=== PATIENT | female | born 1970 | race Caucasian/White ===

== ENCOUNTER 2018-05-01 13:35 | Emergency (ER) | payer OTHER ==
[2018-05-01 14:09] VITALS: RESP 18
[2018-05-01] MEDS ORDERED: PANTOPRAZOLE 40 MG/10 ML VIAL IVP STA (14:58)
[2018-05-01] MEDS ORDERED: SODIUM CHLORIDE 0.9% 1,000 ML IV ONE (14:58)
[2018-05-01] MEDS ORDERED: SODIUM CHLORIDE 0.9% 1,000 ML IV SCH (15:00)
[2018-05-01] MEDS ORDERED: MECLIZINE 12.5 MG TAB PO STA (15:19)
--- NOTE | 2018-05-01 15:20 | ED ---
Abdominal Pain HPI - General Chief Complaint: Abdominal Pain Stated Complaint: Stomach pain Time Seen by Provider: 05/01/18 14:47 Source: patient, RN notes reviewed, old records reviewed Mode of arrival: ambulatory Limitations: no limitations - History of Present Illness Initial Comments: 47-year-old female presents emergency department today with chief complaint of nausea, cramping abdominal pain and dizziness. She reports she's had history of upper GI bleed last June and reports he had have blood transfusions. Patient poor she feels likes having similar complaints of pain she did at that time. She is antacid medication. Patient states that she's been having some sharp crampy abdominal pain complaints of dizziness. At this time Patient states that she has had no fevers or chills. She denies any chest pain shortness of breath or back pain. - Related Data Home Medications Medication Instructions Recorded Confirmed Aspirin/Acetaminophen/Caffeine 1 tab PO DAILY PRN 05/01/18 05/01/18 [Excedrin Migraine Caplet] Calcium Carbonate [Calcium] 600 mg PO DAILY 05/01/18 05/01/18 Ferrous Sulfate [Iron] 325 mg PO DAILY 05/01/18 05/01/18 Ibuprofen [Motrin Ib] 600 mg PO Q6H PRN 05/01/18 05/01/18 Lutein 10 mg PO DAILY 05/01/18 05/01/18 Multivitamin,Therapeutic [Thera] 1 tab PO DAILY 05/01/18 05/01/18 Vitamin B Complex 1 cap PO DAILY 05/01/18 05/01/18 Previous Rx's Medication Instructions Recorded Meclizine [Antivert] 25 mg PO TID #20 tab 05/01/18 Omeprazole [PriLOSEC] 40 mg PO DAILY #20 rama. 05/01/18 Ondansetron Odt [Zofran Odt] 4 mg PO Q8HR PRN #20 tab 05/01/18 Allergies Allergy/AdvReac Type Severity Reaction Status Date / Time nitrofurantoin Allergy Rash/Hives Verified 05/01/18 15:11 [From Macrobid] Review of Systems ROS Statement: Those systems with pertinent positive or pertinent negative responses have been documented in the HPI. ROS Other: All systems not noted in ROS Statement are negative. Past Medical History Past Medical History: GI Bleed History of Any Multi-Drug Resistant Organisms: None Reported Past Surgical History: No Surgical Hx Reported Past Psychological History: Depression Smoking Status: Former smoker Past Alcohol Use History: Occasional General Exam - General Exam Comments Initial Comments: 47-year-old female. Alert and oriented. No significant distress. Limitations: no limitations General appearance: alert, in no apparent distress Head exam: Present: atraumatic, normocephalic, normal inspection Eye exam: Present: normal appearance, PERRL, EOMI. Absent: scleral icterus, conjunctival injection, periorbital swelling ENT exam: Present: normal exam, mucous membranes moist Neck exam: Present: normal inspection. Absent: tenderness, meningismus, lymphadenopathy Respiratory exam: Present: normal lung sounds bilaterally. Absent: respiratory distress, wheezes, rales, rhonchi, stridor Cardiovascular Exam: Present: regular rate, normal rhythm, normal heart sounds. Absent: systolic murmur, diastolic murmur, rubs, gallop, clicks GI/Abdominal exam: Present: soft, normal bowel sounds. Absent: distended, tenderness, guarding, rebound, rigid Back exam: Present: normal inspection Neurological exam: Present: alert, oriented X3, CN II-XII intact Psychiatric exam: Present: normal affect, normal mood Skin exam: Present: warm, dry, intact, normal color. Absent: rash Course Vital Signs 05/01/18 14:07 Temperature 98.4 F Pulse Rate 74 Respiratory 18 Rate Blood Pressure 143/94 O2 Sat by Pulse 98 Oximetry Medical Decision Making - Medical Decision Making 47-year-old female presents emergency department today with chief complaints of nausea, abdominal cramping. She also complains of dizziness. At this time Patient was given an Pepcid, IV fluids. EKG is normal. Troponins negative. Chest x-ray shows no acute process. Due to question the Patient has some vertigo on exam with some his nystagmus noted on horizontal gaze. Patient at this time has no signs of anemia, concern for GI bleed. She states she's had normal stools. She is not want me to do a fecal occult test at this time. Urinalysis was negative. Discussed that this time that would like to start the Patient back on Pepcid antacid medication and nausea medicine and Antivert for dizziness. I discussed he needs to remain hydrated. Discussed that she should follow-up with Dr. Bhandari for reevaluation and return parameters were discussed. - Lab Data Result diagrams: 05/01/18 13:06 05/01/18 13:06 Lab Results 05/01/18 05/01/18 05/01/18 Range/Units 13:06 13:06 13:06 WBC 7.1 (3.8-10.6) k/uL RBC 4.81 (3.80-5.40) m/uL Hgb 15.1 (11.4-16.0) gm/dL Hct 46.1 H (34.0-46.0) % MCV 95.9 (80.0-100.0) fL MCH 31.4 (25.0-35.0) pg MCHC 32.8 (31.0-37.0) g/dL RDW 12.0 (11.5-15.5) % Plt Count 268 (150-450) k/uL Neutrophils % 67 % Lymphocytes % 25 % Monocytes % 5 % Eosinophils % 2 % Basophils % 1 % Neutrophils # 4.8 (1.3-7.7) k/uL Lymphocytes # 1.8 (1.0-4.8) k/uL Monocytes # 0.3 (0-1.0) k/uL Eosinophils # 0.1 (0-0.7) k/uL Basophils # 0.0 (0-0.2) k/uL Sodium 141 (137-145) mmol/L Potassium 5.1 (3.5-5.1) mmol/L Chloride 106 (98-107) mmol/L Carbon Dioxide 26 (22-30) mmol/L Anion Gap 9 mmol/L BUN 16 (7-17) mg/dL Creatinine 0.59 (0.52-1.04) mg/dL Est GFR (CKD-EPI)AfAm >90 (>60 ml/min/1.73 sqM) Est GFR (CKD-EPI)NonAf >90 (>60 ml/min/1.73 sqM) Glucose 89 (74-99) mg/dL Calcium 9.8 (8.4-10.2) mg/dL Total Bilirubin 1.1 (0.2-1.3) mg/dL AST 25 (14-36) U/L ALT 30 (9-52) U/L Alkaline Phosphatase 47 (38-126) U/L Troponin I <0.012 (0.000-0.034) ng/mL Total Protein 7.5 (6.3-8.2) g/dL Albumin 4.5 (3.5-5.0) g/dL Amylase 65 (30-110) U/L Lipase 75 (23-300) U/L Urine Color Urine Appearance (Clear) Urine pH (5.0-8.0) Ur Specific [place] (1.001-1.035) Urine Protein (Negative) Urine Glucose (UA) (Negative) Urine Ketones (Negative) Urine Blood (Negative) Urine Nitrite (Negative) Urine Bilirubin (Negative) Urine Urobilinogen (<2.0) mg/dL Ur Leukocyte Esterase (Negative) Urine RBC (0-5) /hpf Urine WBC (0-5) /hpf Ur Squamous Epith Cells (0-4) /hpf Urine Bacteria (None) /hpf 05/01/18 Range/Units 16:10 WBC (3.8-10.6) k/uL RBC (3.80-5.40) m/uL Hgb (11.4-16.0) gm/dL Hct (34.0-46.0) % MCV (80.0-100.0) fL MCH (25.0-35.0) pg MCHC (31.0-37.0) g/dL RDW (11.5-15.5) % Plt Count (150-450) k/uL Neutrophils % % Lymphocytes % % Monocytes % % Eosinophils % % Basophils % % Neutrophils # (1.3-7.7) k/uL Lymphocytes # (1.0-4.8) k/uL Monocytes # (0-1.0) k/uL Eosinophils # (0-0.7) k/uL Basophils # (0-0.2) k/uL Sodium (137-145) mmol/L Potassium (3.5-5.1) mmol/L Chloride (98-107) mmol/L Carbon Dioxide (22-30) mmol/L Anion Gap mmol/L BUN (7-17) mg/dL Creatinine (0.52-1.04) mg/dL Est GFR (CKD-EPI)AfAm (>60 ml/min/1.73 sqM) Est GFR (CKD-EPI)NonAf (>60 ml/min/1.73 sqM) Glucose (74-99) mg/dL Calcium (8.4-10.2) mg/dL Total Bilirubin (0.2-1.3) mg/dL AST (14-36) U/L ALT (9-52) U/L Alkaline Phosphatase (38-126) U/L Troponin I (0.000-0.034) ng/mL Total Protein (6.3-8.2) g/dL Albumin (3.5-5.0) g/dL Amylase (30-110) U/L Lipase (23-300) U/L Urine Color Light Yellow Urine Appearance Clear (Clear) Urine pH 6.0 (5.0-8.0) Ur Specific [place] 1.008 (1.001-1.035) Urine Protein Negative (Negative) Urine Glucose (UA) Negative (Negative) Urine Ketones Negative (Negative) Urine Blood Trace H (Negative) Urine Nitrite Negative (Negative) Urine Bilirubin Negative (Negative) Urine Urobilinogen <2.0 (<2.0) mg/dL Ur Leukocyte Esterase Small H (Negative) Urine RBC 1 (0-5) /hpf Urine WBC 1 (0-5) /hpf Ur Squamous Epith Cells 2 (0-4) /hpf Urine Bacteria Rare H (None) /hpf - Radiology Data Radiology results: report reviewed EKG shows was markedly EKG noted. Ventricular rate of 62. Tachycardia. Intervals 1:30 for most seconds. She anabaptist 106 most seconds. QT QTc is 420/434 ms. Disposition Clinical Impression: Dizziness, Abdominal cramping Disposition: HOME SELF-CARE Condition: Good Instructions: Vertigo (ED), Lightheadedness (ED) Additional Instructions: Patient has a follow-up with primary care provider and GI specialist. Start taking the medication as prescribed. Return to emergency department if any alarming signs or symptoms occur. Prescriptions: Meclizine [Antivert] 25 mg PO TID #20 tab Omeprazole [PriLOSEC] 40 mg PO DAILY #20 capsule. Ondansetron Odt [Zofran Odt] 4 mg PO Q8HR PRN #20 tab PRN Reason: Pain Is patient prescribed a controlled substance at d/c from ED?: No Referrals: Allison Gill MD [Primary Care Provider] - 1-2 days Anastacia Frankel MD [STAFF PHYSICIAN] - 1-2 days Time of Disposition: 16:33
[2018-05-01 15:28] LABS: Basophils % (A) 1 %; Eosinophils # (A) 0.1 k/uL (0-0.7); Eosinophils % (A) 2 %; HCT 46.1 % (34.0-46.0); HGB 15.1 gm/dL (11.4-16.0); Lymphocytes # (A) 1.8 k/uL (1.0-4.8); Lymphocytes % (A) 25 %; MCH 31.4 pg (25.0-35.0); MCHC 32.8 g/dL (31.0-37.0); MCV 95.9 fL (80.0-100.0); Mean Platelet Volume 6.7; Monocytes # (A) 0.3 k/uL (0-1.0); Monocytes % (A) 5 %; Neutrophils # (A) 4.8 k/uL (1.3-7.7); Neutrophils % (A) 67 %; Platelet Count 268 k/uL (150-450); RBC 4.81 m/uL (3.80-5.40); WBC 7.1 k/uL (3.8-10.6)
[2018-05-01 15:34] LABS: ALT 30 U/L (9-52); AST 25 U/L (14-36); Albumin 4.5 g/dL (3.5-5.0); Alkaline Phosphatase 47 U/L (38-126); Amylase 65 U/L (30-110); Anion Gap 9 mmol/L; Blood Urea Nitrogen 16 mg/dL (7-17); Calcium 9.8 mg/dL (8.4-10.2); Carbon Dioxide 26 mmol/L (22-30); Chloride 106 mmol/L (98-107); Glucose 89 mg/dL (74-99); Lipase 75 U/L (23-300); Potassium 5.1 mmol/L (3.5-5.1); Sodium 141 mmol/L (137-145); Total Bilirubin 1.1 mg/dL (0.2-1.3); Total Protein 7.5 g/dL (6.3-8.2)
--- NOTE | 2018-05-01 15:55 | XR ---
EXAMINATION TYPE: XR chest 2V DATE OF EXAM: 05/01/2018 COMPARISON: NONE HISTORY: Chest pain per order. TECHNIQUE: Frontal and lateral views of the chest are obtained. FINDINGS: There is no focal air space opacity, pleural effusion, or pneumothorax seen. The cardiac silhouette size is within normal limits. The osseous structures are intact. IMPRESSION: No acute cardiopulmonary process.
[2018-05-01 16:23] LABS: Appearance,Urine Clear (Clear); Bacteria,Urine Rare /hpf; Bilirubin,Urine Negative (Negative); Blood,Urine Trace (Negative); Color,Urine Light Yellow; Glucose,Urine (UA) Negative (Negative); Ketones,Urine Negative (Negative); Leukocyte Esterase,Urine Small (Negative); Nitrite,Urine Negative (Negative); Protein,Urine Negative (Negative); RBC,Urine 1 /hpf (0-5); Specific Gravity,Urine 1.008 (1.001-1.035); Squamous Epithelial Cell,Urine 2 /hpf (0-4); Urobilinogen,Urine <2.0 mg/dL (<2.0); WBC,Urine 1 /hpf (0-5)
--- NOTE | 2018-05-01 16:49 | ED ---
Medical Decision Making - Lab Data Result diagrams: 05/01/18 13:06 05/01/18 13:06 Lab Results 05/01/18 05/01/18 05/01/18 Range/Units 13:06 13:06 13:06 WBC 7.1 (3.8-10.6) k/uL RBC 4.81 (3.80-5.40) m/uL Hgb 15.1 (11.4-16.0) gm/dL Hct 46.1 H (34.0-46.0) % MCV 95.9 (80.0-100.0) fL MCH 31.4 (25.0-35.0) pg MCHC 32.8 (31.0-37.0) g/dL RDW 12.0 (11.5-15.5) % Plt Count 268 (150-450) k/uL Neutrophils % 67 % Lymphocytes % 25 % Monocytes % 5 % Eosinophils % 2 % Basophils % 1 % Neutrophils # 4.8 (1.3-7.7) k/uL Lymphocytes # 1.8 (1.0-4.8) k/uL Monocytes # 0.3 (0-1.0) k/uL Eosinophils # 0.1 (0-0.7) k/uL Basophils # 0.0 (0-0.2) k/uL Sodium 141 (137-145) mmol/L Potassium 5.1 (3.5-5.1) mmol/L Chloride 106 (98-107) mmol/L Carbon Dioxide 26 (22-30) mmol/L Anion Gap 9 mmol/L BUN 16 (7-17) mg/dL Creatinine 0.59 (0.52-1.04) mg/dL Est GFR (CKD-EPI)AfAm >90 (>60 ml/min/1.73 sqM) Est GFR (CKD-EPI)NonAf >90 (>60 ml/min/1.73 sqM) Glucose 89 (74-99) mg/dL Calcium 9.8 (8.4-10.2) mg/dL Total Bilirubin 1.1 (0.2-1.3) mg/dL AST 25 (14-36) U/L ALT 30 (9-52) U/L Alkaline Phosphatase 47 (38-126) U/L Troponin I <0.012 (0.000-0.034) ng/mL Total Protein 7.5 (6.3-8.2) g/dL Albumin 4.5 (3.5-5.0) g/dL Amylase 65 (30-110) U/L Lipase 75 (23-300) U/L Urine Color Urine Appearance (Clear) Urine pH (5.0-8.0) Ur Specific [place] (1.001-1.035) Urine Protein (Negative) Urine Glucose (UA) (Negative) Urine Ketones (Negative) Urine Blood (Negative) Urine Nitrite (Negative) Urine Bilirubin (Negative) Urine Urobilinogen (<2.0) mg/dL Ur Leukocyte Esterase (Negative) Urine RBC (0-5) /hpf Urine WBC (0-5) /hpf Ur Squamous Epith Cells (0-4) /hpf Urine Bacteria (None) /hpf 05/01/18 Range/Units 16:10 WBC (3.8-10.6) k/uL RBC (3.80-5.40) m/uL Hgb (11.4-16.0) gm/dL Hct (34.0-46.0) % MCV (80.0-100.0) fL MCH (25.0-35.0) pg MCHC (31.0-37.0) g/dL RDW (11.5-15.5) % Plt Count (150-450) k/uL Neutrophils % % Lymphocytes % % Monocytes % % Eosinophils % % Basophils % % Neutrophils # (1.3-7.7) k/uL Lymphocytes # (1.0-4.8) k/uL Monocytes # (0-1.0) k/uL Eosinophils # (0-0.7) k/uL Basophils # (0-0.2) k/uL Sodium (137-145) mmol/L Potassium (3.5-5.1) mmol/L Chloride (98-107) mmol/L Carbon Dioxide (22-30) mmol/L Anion Gap mmol/L BUN (7-17) mg/dL Creatinine (0.52-1.04) mg/dL Est GFR (CKD-EPI)AfAm (>60 ml/min/1.73 sqM) Est GFR (CKD-EPI)NonAf (>60 ml/min/1.73 sqM) Glucose (74-99) mg/dL Calcium (8.4-10.2) mg/dL Total Bilirubin (0.2-1.3) mg/dL AST (14-36) U/L ALT (9-52) U/L Alkaline Phosphatase (38-126) U/L Troponin I (0.000-0.034) ng/mL Total Protein (6.3-8.2) g/dL Albumin (3.5-5.0) g/dL Amylase (30-110) U/L Lipase (23-300) U/L Urine Color Light Yellow Urine Appearance Clear (Clear) Urine pH 6.0 (5.0-8.0) Ur Specific [place] 1.008 (1.001-1.035) Urine Protein Negative (Negative) Urine Glucose (UA) Negative (Negative) Urine Ketones Negative (Negative) Urine Blood Trace H (Negative) Urine Nitrite Negative (Negative) Urine Bilirubin Negative (Negative) Urine Urobilinogen <2.0 (<2.0) mg/dL Ur Leukocyte Esterase Small H (Negative) Urine RBC 1 (0-5) /hpf Urine WBC 1 (0-5) /hpf Ur Squamous Epith Cells 2 (0-4) /hpf Urine Bacteria Rare H (None) /hpf Disposition Clinical Impression: Dizziness, Abdominal cramping Disposition: HOME SELF-CARE Condition: Good Instructions: Vertigo (ED), Lightheadedness (ED), Diet for Stomach Ulcers and Gastritis (ED) Additional Instructions: Patient has a follow-up with primary care provider and GI specialist. Start taking the medication as prescribed. Return to emergency department if any alarming signs or symptoms occur. Prescriptions: Meclizine [Antivert] 25 mg PO TID #20 tab Omeprazole [PriLOSEC] 40 mg PO DAILY #20 capsule. Ondansetron Odt [Zofran Odt] 4 mg PO Q8HR PRN #20 tab PRN Reason: Pain Sucralfate [Carafate] 1 gm PO ACHS #20 tablet Is patient prescribed a controlled substance at d/c from ED?: No Referrals: Allison Gill MD [Primary Care Provider] - 1-2 days Anastacia Frankel MD [STAFF PHYSICIAN] - 1-2 days
[2018-05-01 16:58] VITALS: BP 138/64; PULSE 87; TEMP 98
== END 2018-05-01 16:58 | disposition home or self-care (01) ==
LOC: EC 13:35
DX: R10.9 Unspecified abdominal pain (principal); R42 Dizziness and giddiness; R11.0 Nausea; Z87.891 Personal history of nicotine dependence; Z79.899 Other long term (current) drug therapy; Z88.1 Allergy status to other antibiotic agents; Z53.29 Procedure and treatment not carried out because of patient's decision for other reasons
CPT/HCPCS: 36415; 71046; 80053; 81001; 82150; 83690; 84484; 85025; 93005; 96374; 99284

== ENCOUNTER 2018-07-02 10:10 | Inpatient (IN) | payer OTHER ==
[2018-07-02] MEDS ORDERED: SODIUM CHLORIDE 0.9% 1,000 ML IV STA (10:39)
[2018-07-02] MEDS ORDERED: PANTOPRAZOLE 40 MG/10 ML VIAL IVP STA (10:39)
[2018-07-02] MEDS ORDERED: ONDANSETRON 4 MG/2 ML VIAL IVP STA (10:39)
[2018-07-02] MEDS ORDERED: SODIUM CHLORIDE 0.9% 500 ML 500 ML IV STA (10:39)
--- NOTE | 2018-07-02 10:42 | ED ---
General Adult HPI - General Chief complaint: Abdominal Pain Stated complaint: VOMITING BLOOD Time Seen by Provider: 07/02/18 10:29 Source: patient, family, RN notes reviewed Mode of arrival: ambulatory Limitations: no limitations - History of Present Illness Initial comments: Patient is a pleasant 47-year-old female presenting to the emergency department with hematemesis. Patient woke up with an upset stomach. There is mild discomfort and nausea. Following this patient did have 4 episodes of bright red blood. Patient still feels nauseated. Abdominal discomfort is only mild. Patient did have an episode of black stool this morning. Patient did have similar symptoms last year March associated with ulcers. Patient did have scope and blood transfusion done at that time. Patient is not chronically on medication for stomach. Patient does frequently take Excedrin for headaches. - Related Data Home Medications Medication Instructions Recorded Confirmed Aspirin/Acetaminophen/Caffeine 1 tab PO DAILY PRN 05/01/18 07/02/18 [Excedrin Migraine Caplet] Calcium Carbonate [Calcium] 600 mg PO DAILY 05/01/18 07/02/18 Lutein 10 mg PO DAILY 05/01/18 07/02/18 Latanoprost [Xalatan 0.005%] 1 drop BOTH EYES HS 07/02/18 07/02/18 Allergies Allergy/AdvReac Type Severity Reaction Status Date / Time nitrofurantoin Allergy Rash/Hives Verified 07/02/18 11:33 [From Macrobid] Review of Systems ROS Statement: Those systems with pertinent positive or pertinent negative responses have been documented in the HPI. ROS Other: All systems not noted in ROS Statement are negative. Constitutional: Denies: fever Eyes: Denies: eye pain ENT: Denies: ear pain Respiratory: Denies: cough Cardiovascular: Denies: chest pain Endocrine: Reports: fatigue Gastrointestinal: Reports: abdominal pain, nausea, vomiting, hematemesis, melena Genitourinary: Denies: dysuria Musculoskeletal: Denies: back pain Skin: Denies: rash Neurological: Denies: headache Past Medical History Past Medical History: GI Bleed History of Any Multi-Drug Resistant Organisms: None Reported Past Surgical History: No Surgical Hx Reported Past Psychological History: Depression Smoking Status: Former smoker Past Alcohol Use History: Occasional, Rare Past Drug Use History: None Reported General Exam Limitations: no limitations General appearance: alert, in no apparent distress, other (Patient does have a container from home at bedside with bright red blood in it) Head exam: Present: atraumatic Eye exam: Present: normal appearance ENT exam: Present: normal oropharynx Neck exam: Present: normal inspection Respiratory exam: Present: normal lung sounds bilaterally Cardiovascular Exam: Present: regular rate, normal rhythm GI/Abdominal exam: Present: soft, tenderness (Mild epigastric tenderness). Absent: distended Extremities exam: Present: normal inspection Neurological exam: Present: alert Psychiatric exam: Present: normal affect, normal mood Skin exam: Present: normal color Course Vital Signs 07/02/18 07/02/18 10:13 12:51 Temperature 97.4 F L Pulse Rate 98 90 Respiratory 18 18 Rate Blood Pressure 128/78 120/77 O2 Sat by Pulse 100 97 Oximetry - Reevaluation(s) Reevaluation #1: 07/02/18 12:51 Patient reevaluated and resting comfortably in bed. Dr. Rodriguez has been paged for admission. Patient and family have been updated. 07/02/18 13:11 Case was discussed in detail with Dr. Rodriguez, covering for Dr. James gonsalves, who will admit. EKG Findings - EKG Comments: EKG Findings:: Normal sinus rhythm 86. NE 116. QRS 102. QT 390. QTC 466. Normal axis. Normal QRS. No acute ST change. Medical Decision Making - Lab Data Result diagrams: 07/02/18 11:28 07/02/18 11:28 Lab Results 07/02/18 07/02/18 07/02/18 Range/Units 11:28 11:28 11:28 WBC 9.5 (3.8-10.6) k/uL RBC 4.08 (3.80-5.40) m/uL Hgb 13.0 (11.4-16.0) gm/dL Hct 39.1 (34.0-46.0) % MCV 95.9 (80.0-100.0) fL MCH 31.9 (25.0-35.0) pg MCHC 33.2 (31.0-37.0) g/dL RDW 12.4 (11.5-15.5) % Plt Count 289 (150-450) k/uL Neutrophils % 81 % Lymphocytes % 15 % Monocytes % 3 % Eosinophils % 1 % Basophils % 0 % Neutrophils # 7.7 (1.3-7.7) k/uL Lymphocytes # 1.4 (1.0-4.8) k/uL Monocytes # 0.3 (0-1.0) k/uL Eosinophils # 0.1 (0-0.7) k/uL Basophils # 0.0 (0-0.2) k/uL PT (9.0-12.0) sec INR (<1.2) APTT (22.0-30.0) sec Sodium 140 (137-145) mmol/L Potassium 5.2 H (3.5-5.1) mmol/L Chloride 110 H (98-107) mmol/L Carbon Dioxide 18 L (22-30) mmol/L Anion Gap 12 mmol/L BUN 29 H (7-17) mg/dL Creatinine 0.50 L (0.52-1.04) mg/dL Est GFR (CKD-EPI)AfAm >90 (>60 ml/min/1.73 sqM) Est GFR (CKD-EPI)NonAf >90 (>60 ml/min/1.73 sqM) Glucose 97 (74-99) mg/dL Calcium 9.1 (8.4-10.2) mg/dL Total Bilirubin 1.2 (0.2-1.3) mg/dL AST 27 (14-36) U/L ALT 24 (9-52) U/L Alkaline Phosphatase 38 (38-126) U/L Total Protein 6.8 (6.3-8.2) g/dL Albumin 4.0 (3.5-5.0) g/dL Gastric Occult Blood Positive (Negative) Blood Type Blood Type Recheck Antibody Screen Spec Expiration Date 07/02/18 07/02/18 Range/Units 11:28 11:28 WBC (3.8-10.6) k/uL RBC (3.80-5.40) m/uL Hgb (11.4-16.0) gm/dL Hct (34.0-46.0) % MCV (80.0-100.0) fL MCH (25.0-35.0) pg MCHC (31.0-37.0) g/dL RDW (11.5-15.5) % Plt Count (150-450) k/uL Neutrophils % % Lymphocytes % % Monocytes % % Eosinophils % % Basophils % % Neutrophils # (1.3-7.7) k/uL Lymphocytes # (1.0-4.8) k/uL Monocytes # (0-1.0) k/uL Eosinophils # (0-0.7) k/uL Basophils # (0-0.2) k/uL PT 9.8 (9.0-12.0) sec INR 1.0 (<1.2) APTT 20.4 L (22.0-30.0) sec Sodium (137-145) mmol/L Potassium (3.5-5.1) mmol/L Chloride (98-107) mmol/L Carbon Dioxide (22-30) mmol/L Anion Gap mmol/L BUN (7-17) mg/dL Creatinine (0.52-1.04) mg/dL Est GFR (CKD-EPI)AfAm (>60 ml/min/1.73 sqM) Est GFR (CKD-EPI)NonAf (>60 ml/min/1.73 sqM) Glucose (74-99) mg/dL Calcium (8.4-10.2) mg/dL Total Bilirubin (0.2-1.3) mg/dL AST (14-36) U/L ALT (9-52) U/L Alkaline Phosphatase (38-126) U/L Total Protein (6.3-8.2) g/dL Albumin (3.5-5.0) g/dL Gastric Occult Blood (Negative) Blood Type O Positive Blood Type Recheck CABO Indicated Antibody Screen NEGATIVE Spec Expiration Date 07/05/2018 - 6751 - Radiology Data Radiology results: image reviewed (Abdominal x-ray reveals no acute process) Disposition Clinical Impression: Upper GI bleed Disposition: ADMITTED IP TO THIS [facility] Condition: Serious Is patient prescribed a controlled substance at d/c from ED?: No Decision Time: 12:44
[2018-07-02 11:57] LABS: Basophils % (A) 0 %; Eosinophils # (A) 0.1 k/uL (0-0.7); Eosinophils % (A) 1 %; HCT 39.1 % (34.0-46.0); Lymphocytes # (A) 1.4 k/uL (1.0-4.8); Lymphocytes % (A) 15 %; MCH 31.9 pg (25.0-35.0); MCHC 33.2 g/dL (31.0-37.0); MCV 95.9 fL (80.0-100.0); Monocytes # (A) 0.3 k/uL (0-1.0); Monocytes % (A) 3 %; Neutrophils # (A) 7.7 k/uL (1.3-7.7); Neutrophils % (A) 81 %; Platelet Count 289 k/uL (150-450); RBC 4.08 m/uL (3.80-5.40); RDW 12.4 % (11.5-15.5); WBC 9.5 k/uL (3.8-10.6)
[2018-07-02 12:08] LABS: ALT 24 U/L (9-52); AST 27 U/L (14-36); Alkaline Phosphatase 38 U/L (38-126); Anion Gap 12 mmol/L; Blood Urea Nitrogen 29 mg/dL (7-17); Calcium 9.1 mg/dL (8.4-10.2); Carbon Dioxide 18 mmol/L (22-30); Chloride 110 mmol/L (98-107); Glucose 97 mg/dL (74-99); Sodium 140 mmol/L (137-145); Total Bilirubin 1.2 mg/dL (0.2-1.3); Total Protein 6.8 g/dL (6.3-8.2)
[2018-07-02 12:12] LABS: Potassium 5.2 mmol/L (3.5-5.1)
--- NOTE | 2018-07-02 12:13 | XR ---
Abdomen HISTORY: Vomiting blood, history of ulcers Frontal view of the abdomen on 2 images Lung bases are clear. There is a mild spinal curvature. There are overlying cardiac leads. No evident pneumoperitoneum or bowel obstruction. No pathologic calcification. Bone mineralization is normal. IMPRESSION: Nonobstructive bowel gas pattern.
[2018-07-02 12:18] LABS: Prothrombin Time 9.8 sec (9.0-12.0)
[2018-07-02 12:32] LABS: Partial Thromboplastin Time 20.4 sec (22.0-30.0)
[2018-07-02] MEDS ORDERED: NALOXONE 0.4 MG/ML 1 ML VIAL IV PRN (12:44)
[2018-07-02] MEDS ORDERED: ONDANSETRON 4 MG/2 ML VIAL IVP PRN (12:44)
[2018-07-02] MEDS ORDERED: SUMAtriptan SUCCINATE 50 MG TAB PO PRN (15:18)
--- NOTE | 2018-07-02 15:18 | P.HPIM ---
History of Present Illness H&P Date: 07/02/18 Chief Complaint: Abdominal pain upper GI bleed This Is a pleasant 47-year-old lady patient of Dr. Gill, she has underlying history of upper GI bleed last June 2017, and has had blood transfusions the past coming in with similar complaints. She is on antacid medication, pain is epigastric, crampy abdominal pain, with no lightheadedness or dizziness, patient has one melanocytic stools, and bright red emesis.. No chest pain no fever no chills. She was on Motrin in April 2018, and is on Excedrin migraine which contains aspirin She is not chronically on any NSAIDs or PPIs. She is on Tums 600 mg daily Review of Systems Constitutional: Reports as per HPI, Denies anorexia, Denies chills, Denies chronic headaches, Denies chronic pain, Denies daytime sleepiness, Denies fatigue, Denies fever, Denies lethargy, Denies malaise, Denies night sweats, Denies poor appetite, Denies sweats, Denies weakness, Denies weight gain, Denies weight loss Ears, nose, mouth and throat: Reports as per HPI, Denies ant. neck pain, Denies bleeding gums, Denies dental pain, Denies dysphagia, Denies epistaxis, Denies headache, Denies hoarseness, Denies mouth pain, Denies nasal congestion, Denies nasal discharge, Denies neck fullness/pressure, Denies neck lump, Denies nose pain, Denies odynophagia, Denies post-nasal drip, Denies sinus pain, Denies sinus pressure, Denies swelling in mouth, Denies swelling in throat, Denies sore throat, Denies vertigo, Denies voice changes Cardiovascular: Reports as per HPI, Denies chest pain, Denies claudication, Denies decreased exercise tolerance, Denies dyspnea on exertion, Denies edema, Denies high blood pressure, Denies irregular heart beat, Denies leg edema, Denies lightheadedness, Denies orthopnea, Denies palpitations, Denies paroxysmal nocturnal dyspnea, Denies phlebitis, Denies rapid heart beat, Denies shortness of breath, Denies syncope Respiratory: Reports as per HPI Gastrointestinal: Reports as per HPI, Reports abdominal pain, Reports coffee ground emesis, Reports early satiety, Reports nausea Genitourinary: Reports as per HPI, Denies abnormal vaginal bleeding, Denies decreased libido, Denies difficulty conceiving, Denies difficulty voiding, Denies dysmenorrhea, Denies dyspareunia, Denies dysuria, Denies flank pain, Denies genital sores, Denies hematuria, Denies hot flashes, Denies incomplete emptying, Denies kidney stones, Denies menorrhagia, Denies mixed incontinence, Denies nocturia, Denies pelvic pain, Denies post void dribbling, Denies , Denies prolapse symptoms, Denies stress incontinence, Denies urge incontinence , Denies urgency, Denies urinary frequency, Denies vaginal discharge, Denies vaginal dryness, Denies vaginal itching, Denies vaginal odor Menstruation: Reports as per HPI Musculoskeletal: Reports as per HPI Integumentary: Reports as per HPI Neurological: Reports as per HPI, Reports headaches, Denies aphasia, Denies ataxia, Denies balance difficulties, Denies burning pain, Denies change in mentation, Denies change in smell/taste, Denies change in speech, Denies confusion, Denies convulsions, Denies double vision, Denies gait dysfunction, Denies head injury, Denies hearing difficulties, Denies lack of coordination, Denies loss of vision, Denies memory loss, Denies migraines, Denies motor disturbance, Denies numbness, Denies paralysis, Denies paresthesias, Denies seizures, Denies sensory deficit, Denies spasticity, Denies syncope, Denies tic , Denies tingling, Denies transient paralysis, Denies tremors, Denies vertigo, Denies weakness, Denies visual changes Psychiatric: Reports as per HPI, Denies anhedonia, Denies anxiety, Denies anxiety attacks, Denies change in appetite, Denies change in libido, Denies change in sleep habits, Denies confusion, Denies depression, Denies difficulty concentrating, Denies disorientation, Denies hallucinations, Denies hopelessness , Denies hypersomnia, Denies insomnia, Denies irritability, Denies memory loss, Denies mood swings, Denies paranoia, Denies sadness/tearfulness, Denies sleep disturbances, Denies suicidal ideation Endocrine: Reports as per HPI, Denies cold intolerance, Denies deepening of the voice, Denies excessive sweating, Denies excessive thirst, Denies fatigue, Denies flushing, Denies heat intolerance, Denies high blood sugars, Denies increase in ring/shoe/hat size, Denies low blood sugars, Denies nocturia, Denies palpitations, Denies polydipsia, Denies polyphagia, Denies polyuria, Denies proptosis, Denies recent glucocorticoid use, Denies thyroid mass, Denies weight change Hematologic/Lymphatic: Reports as per HPI, Denies easy bleeding, Denies easy bruising, Denies lymphadenopathy, Denies lymphedema, Denies thrombophilia Allergic/Immunologic: Reports as per HPI, Denies allergic rhinitis, Denies anaphylaxis, Denies angioedema, Denies gluten intolerance, Denies persistent infections, Denies seasonal allergies, Denies urticaria, Denies wheezing Past Medical History Past Medical History: Eye Disorder, GI Bleed, Hypertension, Syncope Additional Past Medical History / Comment(s): Pt states 03/2017 had bleeding gastric ulcer/vertigo and syncopal episode, migraines, pt states has had HTN in the past, glaucoma bilaterally. History of Any Multi-Drug Resistant Organisms: None Reported Past Surgical History: No Surgical Hx Reported Additional Past Surgical History / Comment(s): egd Past Anesthesia/Blood Transfusion Reactions: No Reported Reaction Additional Past Anesthesia/Blood Transfusion Reaction / Comment(s): Pt has received blood in past without reaction. Smoking Status: Former smoker - Past Family History Father Family Medical History: Cancer Additional Family Medical History / Comment(s): Father is living. He has leukemia. Mother Family Medical History: COPD, Dementia Additional Family Medical History / Comment(s): Mother is . Medications and Allergies Home Medications Medication Instructions Recorded Confirmed Type Aspirin/Acetaminophen/Caffeine 1 tab PO DAILY PRN 05/01/18 07/02/18 History [Excedrin Migraine Caplet] Calcium Carbonate [Calcium] 600 mg PO DAILY 05/01/18 07/02/18 History Lutein 10 mg PO DAILY 05/01/18 07/02/18 History Latanoprost [Xalatan 0.005%] 1 drop BOTH EYES HS 07/02/18 07/02/18 History Allergies Allergy/AdvReac Type Severity Reaction Status Date / Time nitrofurantoin Allergy Rash/Hives Verified 07/02/18 11:33 [From Macrobid] Physical Exam Vitals: Vital Signs Temp Pulse Pulse Resp BP BP Pulse Ox 07/02/18 14:55 97.7 F 88 16 144/80 99 07/02/18 13:30 97.8 F 84 18 129/81 99 07/02/18 12:51 90 18 120/77 97 07/02/18 10:13 97.4 F L 98 18 128/78 100 Intake and Output 07/02/18 07/02/18 07/02/18 06:59 14:59 22:59 Other: Weight 81.647 kg - Constitutional General appearance: average body habitus, cooperative, no acute distress - EENT Eyes: no abnormal pupil, anicteric sclerae, no disc margins sharp, no edentulous , EOMI, no PERRLA, no fundus normal, no photophobia, dentition normal, no poor dentition, no ptosis, no scleral icterus, normal appearance - Neck Neck: no lymphadenopathy, normal ROM, no other, no rigidity, no stridor, no thyromegaly - Respiratory Respiratory: bilateral: CTA, negative: diminished, dullness, rales, rhonchi, wheezing, prolonged expiration, prolonged inspiration - Cardiovascular Rhythm: regular Heart sounds: normal: S1, S2 Abnormal Heart Sounds: no systolic murmur, no diastolic murmur, no rub, no S3 Gallop, no S4 Gallop, no click, no other - Gastrointestinal General gastrointestinal: normal bowel sounds, soft, tenderness - Integumentary Integumentary: decreased turgor, normal - Neurologic Neurologic: CNII-XII intact - Musculoskeletal Musculoskeletal: gait normal, strength equal bilaterally - Psychiatric Psychiatric: A&O x's 3, appropriate affect, intact judgment & insight Results CBC & Chem 7: 07/02/18 11:28 07/02/18 11:28 Labs: Abnormal Lab Results - Last 24 Hours (Table) 07/02/18 07/02/18 Range/Units 11:28 11:28 APTT 20.4 L (22.0-30.0) sec Potassium 5.2 H (3.5-5.1) mmol/L Chloride 110 H (98-107) mmol/L Carbon Dioxide 18 L (22-30) mmol/L BUN 29 H (7-17) mg/dL Creatinine 0.50 L (0.52-1.04) mg/dL Thrombosis Risk Factor Assmnt - DVT/VTE Prophylaxis DVT/VTE Prophylaxis: Mechanical Prophylaxis ordered, Contraindicated - See note - Choose All That Apply Any of the Below Risk Factors Present?: Yes Each Factor Represents 1 point: Age 41-60 years Other Risk Factors: No Other congenital or acquired thrombophilia - If yes, enter type in comment: No Thrombosis Risk Factor Assessment Total Risk Factor Score: 1 Thrombosis Risk Factor Assessment Level: Low Risk Assessment and Plan Plan: 1. Recurrent upper GI bleeding, with prior history of blood transfusions, patient would be given IV PPI 40 mg twice a day, consult GI, he had a scope in March 2018, patient is on chronic exposure to aspirin in the form of a migraine medication, this will be discontinued, As it contains aspirin. Patient would be observed overnight for blood losses, H&H every 6 hours patient will be kept under telemetry unit, might need ICU she had multiple been dropped significantly or blood losses are significant 2. Migraines, chronic use of Dexedrine which contains aspirin, this does more harm than good for her treatment, migraine prophylaxis is warranted, we would discuss this with the patient for possible long-term use, Imitrex to be used for headache abortive treatments, 3. History of blood loss anemia with prior blood transfusions, hemoglobin currently is at 13, monitor frequently, INRs are normal at 1.0 For Hyperkalemia most likely secondary to falling contraction mild dehydration 4. Mild azotemia most likely secondary to dehydration, no evidence of acute renal sufficiency or injury at this time 5. Mild leukocyte esterase positivity without any evidence of significant pyuria, urine WBC of 1, we will not treat 6. Gastric occult blood positive secondary to upper GI bleed C treatment above
[2018-07-02] MEDS: SODIUM CHLORIDE 0.9% 1,000 ML IV SCH ×2 (16:00→22:36)
[2018-07-02] MEDS: PANTOPRAZOLE 40 MG/10 ML VIAL IV SCH ×2 (16:42→22:33)
[2018-07-02 18:43] LABS: Basophils % (A) 0 %; Eosinophils # (A) 0.1 k/uL (0-0.7); Eosinophils % (A) 1 %; HCT 34.8 % (34.0-46.0); HGB 11.5 gm/dL (11.4-16.0); Lymphocytes # (A) 1.7 k/uL (1.0-4.8); Lymphocytes % (A) 17 %; MCHC 33.1 g/dL (31.0-37.0); MCV 96.8 fL (80.0-100.0); Mean Platelet Volume 6.7; Monocytes # (A) 0.3 k/uL (0-1.0); Monocytes % (A) 3 %; Neutrophils # (A) 7.7 k/uL (1.3-7.7); Neutrophils % (A) 79 %; Platelet Count 266 k/uL (150-450); RBC 3.59 m/uL (3.80-5.40); RDW 12.7 % (11.5-15.5); WBC 9.7 k/uL (3.8-10.6)
[2018-07-02] MEDS: LACTATED RINGERS 1,000 ML IV SCH (18:43)
[2018-07-03 01:39] LABS: HCT 31.8 % (34.0-46.0); HGB 10.2 gm/dL (11.4-16.0); MCHC 31.9 g/dL (31.0-37.0); MCV 97.2 fL (80.0-100.0); Mean Platelet Volume 6.4; Platelet Count 256 k/uL (150-450); RBC 3.28 m/uL (3.80-5.40); RDW 12.8 % (11.5-15.5); WBC 9.3 k/uL (3.8-10.6)
[2018-07-03] MEDS: SODIUM CHLORIDE 0.9% 1,000 ML IV SCH ×3 (05:45→20:39)
[2018-07-03] MEDS: PANTOPRAZOLE 40 MG/10 ML VIAL IV SCH ×2 (07:48→20:39)
[2018-07-03] MEDS ORDERED: fentaNYL (PF) 50 MCG/ML 2 ML AMP ONE (08:58)
[2018-07-03] MEDS ORDERED: PROPOFOL 10 MG/ML 20 ML VIAL IV ONE (08:58)
[2018-07-03] MEDS ORDERED: IV FLUID CONTINUATION 1,000 ML IV ONE (08:58)
[2018-07-03] MEDS ORDERED: LIDOCAINE 1% INJ 10MG/ML (20 ML MDV) ONE (08:58)
[2018-07-03] MEDS ORDERED: PANTOPRAZOLE 40 MG/10 ML VIAL IV SCH (09:00)
--- NOTE | 2018-07-03 09:29 | P.PCN ---
Date of Procedure: 07/03/18 Procedure(s) Performed: Procedure: Esophagogastroduodenoscopy and biopsy. Preoperative diagnosis: Upper GI bleeding. Postoperative diagnosis: 1. Small sliding hiatal hernia with no obvious esophagitis or complicated reflux disease. 2. Antral gastritis with multiple erosions and small ulcerations but no active bleeding. 3. Mild duodenitis with no ulcers or bleeding. 4. Biopsies obtained from the antrum to rule out H. pylori infection. Preparation sedation: Was provided by anesthesia. Brief clinical history: The patient is a 47-year-old female who presented to the emergency department with hematemesis. Patient woke up with an upset stomach. [place] mild discomfort and nausea. Following this patient had a tarry bowel movement and 4 episodes of bright red blood including one on her way to the emergency room. In ER she still felt nauseated. Abdominal discomfort is only mild. Patient did have similar symptoms last year [place] associated with ulcers. Patient did have scope and blood transfusion done at that time. She apparently was treated for bacterial infection back then. Patient is not chronically on medication for stomach. Patient does frequently take Excedrin for headaches and Motrin once a month for abdominal cramps. The details are summarized in the history and physical and dictated consultation and progress notes. This evaluation is to assess for peptic ulcer disease or other etiology. Procedure: With the patient on her left lateral decubitus position and after informed consent and adequate sedation, I passed the Olympus-GIF 160 video upper endoscope through the cricopharyngeus down the esophagus. GE junction was around 40 cm from the incisors and there was a small sliding hiatal hernia but no obvious esophagitis or complicated reflux disease. No mucosal tears or bleeding. The endoscope was then passed into the stomach which was insufflated with air and inspected in detail including the retroflex view in the cardia. There was some mottling and erythema in the antrum as well as scattered erosions and small ulceration but no evidence of active bleeding. No large ulcer crater. Pyloric channel did not show any ulcers. Duodenal bulb showed minimal erythema and minimal friability but no ulcers or bleeding. Post bulbar area and descending duodenum within normal limits. All secretions encountered in the esophagus stomach and duodenum were clear in color with no evidence of active bleeding. I obtained biopsies from the antrum then the endoscope was withdrawn. The patient tolerated the procedure well. Plan: The patient was reassured. Will allow clear liquid diet and advance to full fluids. 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 Will treat for bacterial infection if this is shown again on the biopsies.
--- NOTE | 2018-07-03 10:09 | P.CONS ---
History of Present Illness - Reason for Consult Consult date: 07/03/18 Upper GI bleeding. - History of Present Illness The patient is a 47-year-old female who presented to the emergency department with hematemesis. Patient woke up with an upset stomach. [place] mild discomfort and nausea. Following this patient had a tarry bowel movement and 4 episodes of bright red blood including one on her way to the emergency room. In ER she still felt nauseated. Abdominal discomfort is only mild. Patient did have similar symptoms last year March associated with ulcers. Patient did have scope and blood transfusion done at that time. She apparently was treated for bacterial infection back then. Patient is not chronically on medication for stomach. Patient does frequently take Excedrin for headaches and Motrin once a month for abdominal cramps. The details are summarized in the history and physical and dictated consultation and progress notes Review of Systems Constitutional: Denies fever, chills or unintentional weight loss Neurologic: Has history of headaches, no double vision or sensory or motor changes Cardiopulmonary: No chest pains, shortness of breath or palpitations Gastrointestinal: See present illness above Genitourinary: No hematuria, dysuria or frequency Skin: No rashes Endocrine: No polyuria or polydipsia Musculoskeletal: No joint complaints or swelling Hematologic: No bleeding tendency Psychiatric: No history of anxiety or depression Past Medical History Past Medical History: Eye Disorder, GI Bleed, Hypertension, Syncope Additional Past Medical History / Comment(s): Pt states 03/2017 had bleeding gastric ulcer/vertigo and syncopal episode, migraines, pt states has had HTN in the past, glaucoma bilaterally. History of Any Multi-Drug Resistant Organisms: None Reported Past Surgical History: No Surgical Hx Reported Additional Past Surgical History / Comment(s): egd Past Anesthesia/Blood Transfusion Reactions: No Reported Reaction Additional Past Anesthesia/Blood Transfusion Reaction / Comm: Pt has received blood in past without reaction. Smoking Status: Former smoker - Past Family History Father Family Medical History: Cancer Additional Family Medical History / Comment(s): Father is living. He has leukemia. Mother Family Medical History: COPD, Dementia Additional Family Medical History / Comment(s): Mother is . Medications and Allergies Home Medications Medication Instructions Recorded Confirmed Type Aspirin/Acetaminophen/Caffeine 1 tab PO DAILY PRN 05/01/18 07/02/18 History [Excedrin Migraine Caplet] Calcium Carbonate [Calcium] 600 mg PO DAILY 05/01/18 07/02/18 History Lutein 10 mg PO DAILY 05/01/18 07/02/18 History Latanoprost [Xalatan 0.005%] 1 drop BOTH EYES HS 07/02/18 07/02/18 History Allergies Allergy/AdvReac Type Severity Reaction Status Date / Time nitrofurantoin Allergy Rash/Hives Verified 07/02/18 11:33 [From Macrobid] Physical Exam Vitals: Vital Signs Temp Pulse Pulse Resp BP BP Pulse Ox 07/03/18 07:07 98.7 F 88 16 106/80 98 07/02/18 22:00 98.8 F 96 18 139/77 98 07/02/18 14:55 97.7 F 88 16 144/80 99 07/02/18 13:30 97.8 F 84 18 129/81 99 07/02/18 12:51 90 18 120/77 97 07/02/18 10:13 97.4 F L 98 18 128/78 100 Intake and Output 07/02/18 07/03/18 07/03/18 22:59 06:59 14:59 Intake Total 400 0 Balance 400 0 Intake: Oral 400 0 Other: # Voids 1 1 General: Appeared stated age, very pleasant in no acute distress Head and neck: Normocephalic and atraumatic, conjunctivae pink and sclerae not icteric, mucous membranes moist and pink. No masses in the neck or clavicular shifts Lungs: Clear to auscultation with no dullness to percussion Heart: Regular, no abnormal sounds, murmurs, gallops or friction Abdomen: Soft, no masses or organomegalies. No tenderness, bowel sounds present Extremities: No clubbing, cyanosis or edema Neurologic: Alert and oriented 3. Cranial nerves grossly intact. No gross sensory or motor abnormalities Results CBC & Chem 7: 07/03/18 01:05 07/02/18 11:28 Labs: Abnormal Lab Results - Last 24 Hours (Table) 07/02/18 07/02/18 07/02/18 Range/Units 11:28 11:28 18:25 RBC 3.59 L (3.80-5.40) m/uL Hgb (11.4-16.0) gm/dL Hct (34.0-46.0) % APTT 20.4 L (22.0-30.0) sec Potassium 5.2 H (3.5-5.1) mmol/L Chloride 110 H (98-107) mmol/L Carbon Dioxide 18 L (22-30) mmol/L BUN 29 H (7-17) mg/dL Creatinine 0.50 L (0.52-1.04) mg/dL 07/03/18 Range/Units 01:05 RBC 3.28 L (3.80-5.40) m/uL Hgb 10.2 L (11.4-16.0) gm/dL Hct 31.8 L (34.0-46.0) % APTT (22.0-30.0) sec Potassium (3.5-5.1) mmol/L Chloride (98-107) mmol/L Carbon Dioxide (22-30) mmol/L BUN (7-17) mg/dL Creatinine (0.52-1.04) mg/dL Assessment and Plan Assessment: Upper GI bleeding likely on the basis of peptic ulcer disease. History of GI bleeding and finding of peptic ulcer with positive H. pylori infection in March 2017. Plan: I agree with your current management. Will continue PPI therapy and monitoring her blood counts. We will proceed with EGD to rule out recurrent ulcer. Further plans based on the findings.
[2018-07-03 10:29] LABS: Basophils % (A) 0 %; Eosinophils # (A) 0.1 k/uL (0-0.7); Eosinophils % (A) 2 %; HCT 29.7 % (34.0-46.0); HGB 9.7 gm/dL (11.4-16.0); Lymphocytes # (A) 1.9 k/uL (1.0-4.8); Lymphocytes % (A) 30 %; MCH 31.6 pg (25.0-35.0); MCHC 32.6 g/dL (31.0-37.0); MCV 96.9 fL (80.0-100.0); Mean Platelet Volume 6.8; Monocytes # (A) 0.2 k/uL (0-1.0); Monocytes % (A) 4 %; Neutrophils % (A) 63 %; Platelet Count 240 k/uL (150-450); RBC 3.07 m/uL (3.80-5.40); RDW 12.9 % (11.5-15.5); WBC 6.3 k/uL (3.8-10.6)
[2018-07-03] MEDS ORDERED: LORATADINE 10 MG TAB PO PRN (13:29)
[2018-07-03] MEDS: LACTATED RINGERS 1,000 ML IV SCH (16:12)
--- NOTE | 2018-07-03 17:34 | P.PN ---
Subjective Progress Note Date: 07/03/18 Principal diagnosis: upper GI bleed with significant blood loss anemia This Is a pleasant 47-year-old lady patient of Dr. Gill, she has underlying history of upper GI bleed last June 2017, and has had blood transfusions the past coming in with similar complaints. She is on antacid medication, pain is epigastric, crampy abdominal pain, with no lightheadedness or dizziness, patient has one melanocytic stools, and bright red emesis.. No chest pain no fever no chills. She was on Motrin in April 2018, and is on Excedrin migraine which contains aspirin She is not chronically on any NSAIDs or PPIs however she is on aspirin frequently for migraines. She is on Tums 600 mg daily 03/02, patient underwent endoscopy this morning, mild gastritis, with multiple shallow ulcers noted, mild duodenitis no active bleeding performed Dr. Yen H pylori stains were sent out, patient has had a drop of 4 g of hemoglobin in the past 24 hours the current hemoglobin of 9, worrisome outcome in the past lesions requiring blood transfusion for this same problem,, we'll going to keep the patient overnight. Diet will be advanced Objective - Vital Signs Vital signs: Vital Signs Temp 98.7 F 07/03/18 07:07 Pulse 88 07/03/18 07:07 Resp 16 07/03/18 07:07 BP 106/80 07/03/18 07:07 Pulse Ox 98 07/03/18 07:07 Intake & Output 07/02/18 07/03/18 07/03/18 18:59 06:59 18:59 Intake Total 400 100 Balance 400 100 Weight 81.647 kg Intake: IV 100 Oral 400 Other: # Voids 1 - Constitutional General appearance: Present: average body habitus, cooperative - EENT Eyes: Present: anicteric sclerae, EOMI, PERRLA, dentition normal ENT: Present: NA/AT, normal oropharynx - Neck Neck: Present: normal ROM - Respiratory Respiratory: bilateral: CTA, negative: diminished, dullness, rales, rhonchi - Cardiovascular Rhythm: regular Heart sounds: normal: S1, S2 Abnormal Heart Sounds: Absent: systolic murmur, diastolic murmur, rub, S3 Gallop , S4 Gallop, click, other - Gastrointestinal General gastrointestinal: Present: decreased bowel sounds, normal bowel sounds, soft - Integumentary Integumentary: Present: decreased turgor, normal - Neurologic Neurologic: Present: CNII-XII intact - Musculoskeletal Musculoskeletal: Present: gait normal, strength equal bilaterally - Psychiatric Psychiatric: Present: A&O x's 3, appropriate affect - Labs CBC & Chem 7: 07/04/18 08:42 07/04/18 08:42 Labs: Abnormal Lab Results - Last 24 Hours (Table) 07/02/18 07/02/18 07/02/18 Range/Units 11:28 11:28 18:25 RBC 3.59 L (3.80-5.40) m/uL Hgb (11.4-16.0) gm/dL Hct (34.0-46.0) % APTT 20.4 L (22.0-30.0) sec Potassium 5.2 H (3.5-5.1) mmol/L Chloride 110 H (98-107) mmol/L Carbon Dioxide 18 L (22-30) mmol/L BUN 29 H (7-17) mg/dL Creatinine 0.50 L (0.52-1.04) mg/dL 07/03/18 07/03/18 Range/Units 01:05 09:41 RBC 3.28 L 3.07 L (3.80-5.40) m/uL Hgb 10.2 L 9.7 L (11.4-16.0) gm/dL Hct 31.8 L 29.7 L (34.0-46.0) % APTT (22.0-30.0) sec Potassium (3.5-5.1) mmol/L Chloride (98-107) mmol/L Carbon Dioxide (22-30) mmol/L BUN (7-17) mg/dL Creatinine (0.52-1.04) mg/dL Assessment and Plan Plan: 1. Recurrent upper GI bleeding, significant blood loss anemia, with prior history of blood transfusions, patient would be given IV PPI 40 mg twice a day, consult GI, he had a scope in March 2018, patient is on chronic exposure to aspirin in the form of a migraine medication, this will be discontinued, As it contains aspirin. Patient would be observed overnight for blood losses, H&H every 6 hours patient will be kept under telemetry unit, might need ICU she had multiple been dropped significantly or blood losses are significant avoid NSAIDs or aspirin products, otherwise finish the PPI treatment for the next 1-2 months, and then PPI recommended for each NSAID exposure. Procedure performed EGD July 03, 2018, mild antral gastritis, multiple superficial ulcerations, mild duodenitis, 2. Migraines, also has occipital neuralgia and tension headaches chronic use of excedrin which contains aspirin, this does more harm than good for her treatment, migraine prophylaxis is warranted, we would discuss this with the patient for possible long-term use, Imitrex to be used for headache abortive treatments, hydration 3. History of blood loss anemia with prior blood transfusions, hemoglobin currently is at 13, monitor frequently, INRs are normal at 1.0 For Hyperkalemia most likely secondary to falling contraction mild dehydration 4. Mild azotemia most likely secondary to dehydration symptomatic lightheadedness has improved, no evidence of acute renal sufficiency or injury at this time 5. Mild leukocyte esterase positivity without any evidence of significant pyuria, urine WBC of 1, we will not treat,Not needed 6. Gastric occult blood positive secondary to upper GI bleed C treatment above
[2018-07-03] MEDS: FERROUS SULFATE 325 MG TAB PO SCH (18:02)
[2018-07-03] MEDS ORDERED: traMADol 50 MG TAB PO PRN ×2 (18:31)
[2018-07-03] MEDS ORDERED: KETOROLAC 30 MG/ML 1 ML VIAL IVP STA (21:49)
[2018-07-04] MEDS: SODIUM CHLORIDE 0.9% 1,000 ML IV SCH (06:21)
[2018-07-04 07:24] VITALS: BP 111/69; PULSE 75; RESP 18; TEMP 98
[2018-07-04] MEDS: PANTOPRAZOLE 40 MG/10 ML VIAL IV SCH (08:49)
[2018-07-04] MEDS: LACTATED RINGERS 1,000 ML IV SCH (08:49)
[2018-07-04] MEDS: FERROUS SULFATE 325 MG TAB PO SCH (08:50)
[2018-07-04 08:57] LABS: Basophils % (A) 1 %; Eosinophils # (A) 0.2 k/uL (0-0.7); Eosinophils % (A) 4 %; HCT 29.9 % (34.0-46.0); Lymphocytes # (A) 1.5 k/uL (1.0-4.8); Lymphocytes % (A) 34 %; MCH 32.3 pg (25.0-35.0); MCHC 33.3 g/dL (31.0-37.0); Monocytes # (A) 0.2 k/uL (0-1.0); Monocytes % (A) 5 %; Neutrophils # (A) 2.5 k/uL (1.3-7.7); Neutrophils % (A) 55 %; Platelet Count 231 k/uL (150-450); RBC 3.08 m/uL (3.80-5.40); RDW 12.8 % (11.5-15.5); WBC 4.6 k/uL (3.8-10.6)
[2018-07-04 09:12] LABS: Anion Gap 5 mmol/L; Blood Urea Nitrogen 16 mg/dL (7-17); Calcium 8.5 mg/dL (8.4-10.2); Carbon Dioxide 25 mmol/L (22-30); Chloride 110 mmol/L (98-107); Glucose 103 mg/dL (74-99); Potassium 4.4 mmol/L (3.5-5.1); Sodium 140 mmol/L (137-145)
--- NOTE | 2018-07-04 14:00 | P.DS ---
Providers Date of admission: 07/02/18 12:46 Expected date of discharge: 07/04/18 Attending physician: Tatiana Rodriguez Consults: 07/02/18 12:52 Consult Physician Urgent Consulting Provider: Anastacia Frankel Consult Reason/Comments: gi hemorrhage Do you want consulting provider notified?: Yes Primary care physician: [facility] Course: This Is a pleasant 47-year-old lady patient of Dr. Gill, she has underlying history of upper GI bleed last June 2017, and has had blood transfusions the past coming in with similar complaints. She is on antacid medication, pain is epigastric, crampy abdominal pain, with no lightheadedness or dizziness, patient has one melanocytic stools, and bright red emesis.. No chest pain no fever no chills. She was on Motrin in April 2018, and is on Excedrin migraine which contains aspirin She is not chronically on any NSAIDs or PPIs however she is on aspirin frequently for migraines. She is on Tums 600 mg daily 07/03, patient underwent endoscopy this morning, mild gastritis, with multiple shallow ulcers noted, mild duodenitis no active bleeding performed Dr. Soto H pylori stains were sent out, patient has had a drop of 4 g of hemoglobin in the past 24 hours the current hemoglobin of 9, worrisome outcome in the past lesions requiring blood transfusion for this same problem. we'll going to keep the patient overnight. Diet will be advanced 07/04: Patient is anxious for discharge home. She denies having any abdominal pain. She will be started on ferrous sulfate for home which she is to take for one month as well as Protonix twice daily for 1 month. Regarding her headaches , patient to try to avoid Excedrin and any nonsteroidal anti-inflammatories and prescription for Imitrex has been provided. Patient will be discharged home today in stable condition Discharge diagnoses: 1. Recurrent upper GI bleeding, significant blood loss anemia, with prior history of blood transfusions possibly secondary to gastritis, duodenitis. 2. Migraines, also has occipital neuralgia and tension headaches 3. History of blood loss anemia with prior blood transfusions 4. Hyperkalemia secondary to mild dehydration 5. Mild azotemia most likely secondary to dehydration with symptomatic lightheadedness (no HERNANDO) 6. Urinary tract infection ruled out Discharge plan: Home Impression and plan of care have been directed as dictated by the signing physician. Claritza Rivera nurse practitioner acting as scribe for signing physician. Patient Condition at Discharge: Good Plan - Discharge Summary Discharge Rx Participant: No New Discharge Prescriptions: New Ferrous Sulfate [Iron (65 MG Elemental)] 325 mg PO DAILY tab Pantoprazole Sodium [Protonix] 40 mg PO BID #60 tablet. SUMAtriptan SUCCINATE [Imitrex] 50 mg PO Q2H PRN #6 tablet PRN Reason: Headache Continue Lutein 10 mg PO DAILY Calcium Carbonate [Calcium] 600 mg PO DAILY Latanoprost [Xalatan 0.005%] 1 drop BOTH EYES HS Discontinued Aspirin/Acetaminophen/Caffeine [Excedrin Migraine Caplet] 1 tab PO DAILY PRN PRN Reason: Migraine Headache Discharge Medication List Calcium Carbonate [Calcium] 600 mg PO DAILY 05/01/18 [History] Lutein 10 mg PO DAILY 05/01/18 [History] Latanoprost [Xalatan 0.005%] 1 drop BOTH EYES HS 07/02/18 [History] Ferrous Sulfate [Iron (65 MG Elemental)] 325 mg PO DAILY tab 07/04/18 [Rx] Pantoprazole Sodium [Protonix] 40 mg PO BID #60 tablet. 07/04/18 [Rx] SUMAtriptan SUCCINATE [Imitrex] 50 mg PO Q2H PRN #6 tablet 07/04/18 [Rx] Follow up Appointment(s)/Referral(s): Allison Glil MD [Primary Care Provider] - 1 Week (office closed, please call for appointment.) Henry Soto MD [STAFF PHYSICIAN] - 3 Weeks (Office is closed please call on Saturday to set up appt.) Patient Instructions/Handouts: Gastritis (DC), Gastrointestinal Bleeding (DC), Duodenitis (DC) Discharge Disposition: HOME SELF-CARE
[2018-07-04 17:33] LABS: Iron Saturation 23.33 (12.00-45.00)
== END 2018-07-04 11:49 | disposition home or self-care (01) | DRG 379 ==
LOC: EC 10:10 → 4MS4W 12:46 → OBSVTOIN 07-04 08:05
PROVIDERS: ADMIT Family Medicine; ATTEND Family Medicine
PROC: 0DB78ZX Excision of Stomach, Pylorus, Via Natural or Artificial Opening Endoscopic, Diagnostic (ICD-10-PCS; principal; 2018-07-03 09:25)
DX: K29.71 Gastritis, unspecified, with bleeding (principal); K44.9 Diaphragmatic hernia without obstruction or gangrene; K29.80 Duodenitis without bleeding; D50.0 Iron deficiency anemia secondary to blood loss (chronic); E86.0 Dehydration; E87.5 Hyperkalemia; G43.909 Migraine, unspecified, not intractable, without status migrainosus; H40.9 Unspecified glaucoma; I10 Essential (primary) hypertension; K25.9 Gastric ulcer, unspecified as acute or chronic, without hemorrhage or perforation; F32.9 Major depressive disorder, single episode, unspecified; R79.89 Other specified abnormal findings of blood chemistry; Z87.11 Personal history of peptic ulcer disease; Z87.891 Personal history of nicotine dependence; Z88.8 Allergy status to other drugs, medicaments and biological substances; Z80.6 Family history of leukemia; Z82.5 Family history of asthma and other chronic lower respiratory diseases; Z84.89 Family history of other specified conditions
CPT/HCPCS: 36415; 43239; 74018; 80048; 80053; 81025; 82271; 82728; 83540; 83550; 85025; 85027; 85610; 85730; 86850; 86900; 86901; 88305; 96361; 96374; 96375; 99285

== ENCOUNTER → 2018-12-09 | Outpatient (CLI) | payer OTHER ==
--- NOTE | 2018-12-10 12:01 | MM ---
Reason for exam: screening (asymptomatic). History: Family history of breast cancer in sister. Physical Findings: A clinical breast exam by your physician is recommended on an annual basis and results should be correlated with mammographic findings. MG 3D Screening Mammo W/Cad Bilateral CC and MLO view(s) were taken. No prior studies available for comparison. There are scattered fibroglandular densities. There is no discrete abnormality. ASSESSMENT: Negative, BI-RAD 1 RECOMMENDATION: Routine screening mammogram of both breasts in 1 year.
== END ==
LOC: RADMAMWWP 07:56
PROVIDERS: ATTEND Family Medicine
DX: Z12.31 Encounter for screening mammogram for malignant neoplasm of breast (principal)
CPT/HCPCS: 77063; 77067

== ENCOUNTER 2020-11-08 19:14 | Emergency (ER) | payer OTHER ==
[2020-11-08 20:48] VITALS: BP 147/81; PULSE 110; RESP 20; TEMP 99.8
[2020-11-08 21:25] LABS: Appearance,Urine Cloudy (Clear); Bacteria,Urine Rare /hpf; Bilirubin,Urine Negative (Negative); Blood,Urine Negative (Negative); Color,Urine Yellow; Glucose,Urine (UA) Negative (Negative); Hyaline Casts,Urine 1 /lpf (0-2); Ketones,Urine 1+ (Negative); Leukocyte Esterase,Urine Moderate (Negative); Mucus,Urine Rare /hpf; Nitrite,Urine Negative (Negative); Protein,Urine Trace (Negative); RBC,Urine 23 /hpf (0-5); Squamous Epithelial Cell,Urine 14 /hpf (0-4); Urobilinogen,Urine <2.0 mg/dL (<2.0); WBC,Urine 13 /hpf (0-5)
[2020-11-08] MEDS ORDERED: diphenhydrAMINE 50 MG/ML 1 ML VIAL IVP STA (23:03)
[2020-11-08] MEDS ORDERED: MORPHINE SULFATE 2 MG/ML SYRINGE IVP STA (23:03)
[2020-11-08] MEDS ORDERED: SODIUM CHLORIDE 0.9% 1,000 ML IV STA (23:03)
[2020-11-08] MEDS ORDERED: ACETAMINOPHEN TAB 325 MG TAB PO STA (23:11)
--- NOTE | 2020-11-08 23:16 | ED ---
Fever HPI - General Chief Complaint: Fever Stated Complaint: Abd pain/faver/weak/headache Time Seen by Provider: 11/08/20 22:22 Source: patient, RN notes reviewed Mode of arrival: wheelchair Limitations: no limitations - History of Present Illness Initial Comments: Patient is a 50-year-old female that presents to emergency department with fever, abdominal pain and migraine. She notes that she had a migraine all day and did not take any medication for it. She notes that she came in with a fever but has since gone down. She notes that she feels like her stomach lining is peeling off. She does have a history of ulcers. She stated that the pain is approximately a 10 out of 10 unrelieved. She stated that the only way she can be comfortable by laying on her side. She denied any nausea vomiting diarrhea constipation fatigue chills - Related Data Home Medications Medication Instructions Recorded Confirmed Lutein 20 mg PO DAILY 05/01/18 11/08/20 Latanoprost [Xalatan 0.005%] 1 drop BOTH EYES HS 07/02/18 11/08/20 Ascorbic Acid [Vitamin C] 1,000 mg PO DAILY 11/08/20 11/08/20 Multivitamins, Thera [Multivitamin 1 tab PO DAILY 11/08/20 11/08/20 (formulary)] buPROPion SR [Wellbutrin Sr] 100 mg PO DAILY 11/08/20 11/08/20 Previous Rx's Medication Instructions Recorded Sulfamethox-Tmp 800-160Mg [Bactrim 1 each PO Q12HR #10 tab 11/09/20 Ds] Allergies Allergy/AdvReac Type Severity Reaction Status Date / Time nitrofurantoin Allergy Rash/Hives Verified 11/08/20 23:19 [From Macrobid] Review of Systems ROS Statement: Those systems with pertinent positive or pertinent negative responses have been documented in the HPI. ROS Other: All systems not noted in ROS Statement are negative. Past Medical History Past Medical History: Eye Disorder, GI Bleed, Hypertension, Syncope Additional Past Medical History / Comment(s): Pt states 03/2017 had bleeding gastric ulcer/vertigo and syncopal episode, migraines, pt states has had HTN in the past, glaucoma bilaterally. History of Any Multi-Drug Resistant Organisms: None Reported Past Surgical History: No Surgical Hx Reported Additional Past Surgical History / Comment(s): egd Past Anesthesia/Blood Transfusion Reactions: No Reported Reaction Additional Past Anesthesia/Blood Transfusion Reaction / Comment(s): never received blood transfusions Past Psychological History: Depression, No Psychological Hx Reported Smoking Status: Never smoker Past Alcohol Use History: Rare Past Drug Use History: None Reported - Past Family History Father Additional Family Medical History / Comment(s): Father is living. He has leukemia. Mother Additional Family Medical History / Comment(s): Mother is . General Exam Limitations: no limitations General appearance: alert, in no apparent distress Head exam: Present: atraumatic, normocephalic, normal inspection Eye exam: Present: normal appearance, PERRL, EOMI. Absent: scleral icterus, conjunctival injection, periorbital swelling Neck exam: Present: normal inspection. Absent: tenderness, meningismus, lymphadenopathy Respiratory exam: Present: normal lung sounds bilaterally. Absent: respiratory distress, wheezes, rales, rhonchi, stridor Cardiovascular Exam: Present: regular rate, normal rhythm, normal heart sounds. Absent: systolic murmur, diastolic murmur, rubs, gallop, clicks GI/Abdominal exam: Present: soft, normal bowel sounds. Absent: distended, tend erness, guarding, rebound, rigid Extremities exam: Present: normal inspection, full ROM, normal capillary refill. Absent: tenderness, pedal edema, joint swelling, calf tenderness Neurological exam: Present: alert, oriented X3, CN II-XII intact Psychiatric exam: Present: normal affect, normal mood Skin exam: Present: warm, dry, intact, normal color. Absent: rash Course Vital Signs 11/08/20 20:44 Temperature 99.8 F H Pulse Rate 110 H Respiratory 20 Rate Blood Pressure 147/81 O2 Sat by Pulse 95 Oximetry Medical Decision Making - Medical Decision Making 50-year-old female complaining of fever, abdominal pain, migraine. Labs, 2 mg of morphine, 650mg of Tylenol, 50 mg of Benadryl, 1 L normal saline ordered. Labs unremarkable, UA shows mild UTI. Case discussed with Dr. Pruitt, patient can discharge home with follow-up primary care. - Lab Data Result diagrams: 11/08/20 23:03 11/08/20 23:03 Lab Results 11/08/20 11/08/20 11/08/20 Range/Units 20:50 20:54 23:03 WBC 7.3 (3.8-10.6) k/uL RBC 4.91 (3.80-5.40) m/uL Hgb 16.0 (11.4-16.0) gm/dL Hct 46.2 H (34.0-46.0) % MCV 94.0 (80.0-100.0) fL MCH 32.6 (25.0-35.0) pg MCHC 34.7 (31.0-37.0) g/dL RDW 12.0 (11.5-15.5) % Plt Count 261 (150-450) k/uL MPV 6.7 Neutrophils % 89 % Lymphocytes % 6 % Monocytes % 3 % Eosinophils % 1 % Basophils % 0 % Neutrophils # 6.5 (1.3-7.7) k/uL Lymphocytes # 0.5 L (1.0-4.8) k/uL Monocytes # 0.2 (0-1.0) k/uL Eosinophils # 0.1 (0-0.7) k/uL Basophils # 0.0 (0-0.2) k/uL Sodium (137-145) mmol/L Potassium (3.5-5.1) mmol/L Chloride (98-107) mmol/L Carbon Dioxide (22-30) mmol/L Anion Gap mmol/L BUN (7-17) mg/dL Creatinine (0.52-1.04) mg/dL Est GFR (CKD-EPI)AfAm (>60 ml/min/1.73 sqM) Est GFR (CKD-EPI)NonAf (>60 ml/min/1.73 sqM) Glucose (74-99) mg/dL Calcium (8.4-10.2) mg/dL Total Bilirubin (0.2-1.3) mg/dL AST (14-36) U/L ALT (4-34) U/L Alkaline Phosphatase (38-126) U/L Total Protein (6.3-8.2) g/dL Albumin (3.5-5.0) g/dL Urine Color Yellow Urine Appearance Cloudy H (Clear) Urine pH 7.0 (5.0-8.0) Ur Specific [place] 1.020 (1.001-1.035) Urine Protein Trace H (Negative) Urine Glucose (UA) Negative (Negative) Urine Ketones 1+ H (Negative) Urine Blood Negative (Negative) Urine Nitrite Negative (Negative) Urine Bilirubin Negative (Negative) Urine Urobilinogen <2.0 (<2.0) mg/dL Ur Leukocyte Esterase Moderate H (Negative) Urine RBC 23 H (0-5) /hpf Urine WBC 13 H (0-5) /hpf Ur Squamous Epith Cells 14 H (0-4) /hpf Urine Bacteria Rare H (None) /hpf Hyaline Casts 1 (0-2) /lpf Urine Mucus Rare H (None) /hpf Coronavirus (PCR) Not Detected (Not Detectd) Influenza Type A RNA (Not Detectd) Influenza Type B (PCR) (Not Detectd) 11/08/20 11/08/20 Range/Units 23:03 23:14 WBC (3.8-10.6) k/uL RBC (3.80-5.40) m/uL Hgb (11.4-16.0) gm/dL Hct (34.0-46.0) % MCV (80.0-100.0) fL MCH (25.0-35.0) pg MCHC (31.0-37.0) g/dL RDW (11.5-15.5) % Plt Count (150-450) k/uL MPV Neutrophils % % Lymphocytes % % Monocytes % % Eosinophils % % Basophils % % Neutrophils # (1.3-7.7) k/uL Lymphocytes # (1.0-4.8) k/uL Monocytes # (0-1.0) k/uL Eosinophils # (0-0.7) k/uL Basophils # (0-0.2) k/uL Sodium 135 L (137-145) mmol/L Potassium 4.3 (3.5-5.1) mmol/L Chloride 101 (98-107) mmol/L Carbon Dioxide 23 (22-30) mmol/L Anion Gap 11 mmol/L BUN 10 (7-17) mg/dL Creatinine 0.61 (0.52-1.04) mg/dL Est GFR (CKD-EPI)AfAm >90 (>60 ml/min/1.73 sqM) Est GFR (CKD-EPI)NonAf >90 (>60 ml/min/1.73 sqM) Glucose 126 H (74-99) mg/dL Calcium 9.2 (8.4-10.2) mg/dL Total Bilirubin 1.2 (0.2-1.3) mg/dL AST 24 (14-36) U/L ALT 19 (4-34) U/L Alkaline Phosphatase 68 (38-126) U/L Total Protein 7.2 (6.3-8.2) g/dL Albumin 4.4 (3.5-5.0) g/dL Urine Color Urine Appearance (Clear) Urine pH (5.0-8.0) Ur Specific [place] (1.001-1.035) Urine Protein (Negative) Urine Glucose (UA) (Negative) Urine Ketones (Negative) Urine Blood (Negative) Urine Nitrite (Negative) Urine Bilirubin (Negative) Urine Urobilinogen (<2.0) mg/dL Ur Leukocyte Esterase (Negative) Urine RBC (0-5) /hpf Urine WBC (0-5) /hpf Ur Squamous Epith Cells (0-4) /hpf Urine Bacteria (None) /hpf Hyaline Casts (0-2) /lpf Urine Mucus (None) /hpf Coronavirus (PCR) (Not Detectd) Influenza Type A RNA Not Detected (Not Detectd) Influenza Type B (PCR) Not Detected (Not Detectd) Disposition Clinical Impression: Urinary tract infection, Nausea, Migraine Disposition: HOME SELF-CARE Condition: Stable Instructions (If sedation given, give patient instructions): Fever in Adults (ED), Migraine Headache (ED) Additional Instructions: Please return to the Emergency Department if symptoms worsen or any other concerns. Follow-up with primary care in 3-5 days. Take antibiotics as prescribed until complete. Continue take [id number] pain medication and anti-inflammatories for fever and pain control. Prescriptions: Sulfamethox-Tmp 800-160Mg [Bactrim Ds] 1 each PO Q12HR #10 tab Is patient prescribed a controlled substance at d/c from ED?: No Referrals: Mindy Garcia MD [Primary Care Provider] - 1-2 days Time of Disposition: 01:41
[2020-11-08 23:41] LABS: Basophils % (A) 0 %; Eosinophils # (A) 0.1 k/uL (0-0.7); Eosinophils % (A) 1 %; HCT 46.2 % (34.0-46.0); Lymphocytes # (A) 0.5 k/uL (1.0-4.8); Lymphocytes % (A) 6 %; MCH 32.6 pg (25.0-35.0); MCHC 34.7 g/dL (31.0-37.0); Mean Platelet Volume 6.7; Monocytes # (A) 0.2 k/uL (0-1.0); Monocytes % (A) 3 %; Neutrophils # (A) 6.5 k/uL (1.3-7.7); Neutrophils % (A) 89 %; Platelet Count 261 k/uL (150-450); RBC 4.91 m/uL (3.80-5.40); WBC 7.3 k/uL (3.8-10.6)
[2020-11-08 23:53] LABS: ALT 19 U/L (4-34); AST 24 U/L (14-36); African American GFR (CKD) >90 (>60 ml/min/1.73 sqM); Albumin 4.4 g/dL (3.5-5.0); Alkaline Phosphatase 68 U/L (38-126); Anion Gap 11 mmol/L; Blood Urea Nitrogen 10 mg/dL (7-17); Calcium 9.2 mg/dL (8.4-10.2); Carbon Dioxide 23 mmol/L (22-30); Chloride 101 mmol/L (98-107); Glucose 126 mg/dL (74-99); Non-African American GFR(CKD) >90 (>60 ml/min/1.73 sqM); Potassium 4.3 mmol/L (3.5-5.1); Sodium 135 mmol/L (137-145); Total Bilirubin 1.2 mg/dL (0.2-1.3); Total Protein 7.2 g/dL (6.3-8.2)
[2020-11-09] MEDS ORDERED: ONDANSETRON 4 MG ODT STARTER PACK 2 TAB BTL PO STA (01:39)
[2020-11-09] MEDS ORDERED: HYDROmorphone 1 MG/ML 1 ML SYRINGE IVP STA (02:28)
== END 2020-11-09 02:35 | disposition home or self-care (01) ==
LOC: EC 19:14
DX: N39.0 Urinary tract infection, site not specified (principal); G43.909 Migraine, unspecified, not intractable, without status migrainosus; H40.9 Unspecified glaucoma; F32.9 Major depressive disorder, single episode, unspecified; Z20.822 Contact with and (suspected) exposure to COVID-19; Z79.899 Other long term (current) drug therapy; Z88.1 Allergy status to other antibiotic agents
CPT/HCPCS: 36415; 80053; 85025; 81001; 87086; 87502; 87635; 99283; 96374; 96375 ×2; 96361; J1200; J2270

== ENCOUNTER 2022-08-11 01:48 | Emergency (ER) | payer OTHER ==
[2022-08-11 01:52] VITALS: TEMP 98.1
[2022-08-11] MEDS ORDERED: SODIUM CHLORIDE 0.9% 1,000 ML IV ONE (03:24)
[2022-08-11] MEDS ORDERED: METOCLOPRAMIDE 5 MG/ML 2 ML VIAL IVP STA ×2 (03:24→05:09)
[2022-08-11] MEDS ORDERED: KETOROLAC 15 MG/ML 1 ML VIAL IVP STA (03:25)
[2022-08-11 04:16] LABS: ALT 22 U/L (4-34); AST 29 U/L (14-36); African American GFR (CKD) >90 (>60 ml/min/1.73 sqM); Alkaline Phosphatase 136 U/L (38-126); Anion Gap 8 mmol/L; Blood Urea Nitrogen 20 mg/dL (7-17); Calcium 8.8 mg/dL (8.4-10.2); Carbon Dioxide 26 mmol/L (22-30); Chloride 106 mmol/L (98-107); Glucose 104 mg/dL (74-99); Non-African American GFR(CKD) 82 (>60 ml/min/1.73 sqM); Potassium 4.1 mmol/L (3.5-5.1); Sodium 140 mmol/L (137-145); Total Bilirubin 0.3 mg/dL (0.2-1.3); Total Protein 6.8 g/dL (6.3-8.2)
[2022-08-11 04:34] LABS: Anisocytosis Slight; Basophils % (A) 1 %; Eosinophils # (A) 0.2 k/uL (0-0.7); Eosinophils % (A) 4 %; HCT 33.3 % (34.0-46.0); HGB 10.9 gm/dL (11.4-16.0); Hypochromasia Slight; Lymphocytes # (A) 1.5 k/uL (1.0-4.8); Lymphocytes % (A) 27 %; MCH 29.7 pg (25.0-35.0); MCHC 32.8 g/dL (31.0-37.0); MCV 90.4 fL (80.0-100.0); Mean Platelet Volume 8.1; Monocytes # (A) 0.3 k/uL (0-1.0); Monocytes % (A) 5 %; Neutrophils # (A) 3.4 k/uL (1.3-7.7); Neutrophils % (A) 61 %; Platelet Count 196 k/uL (150-450); RBC 3.68 m/uL (3.80-5.40); WBC 5.5 k/uL (3.8-10.6)
[2022-08-11] MEDS ORDERED: diphenhydrAMINE 50 MG/ML 1 ML VIAL IVP STA (05:09)
[2022-08-11] MEDS ORDERED: ONDANSETRON 4 MG/2 ML VIAL IVP STA (05:10)
[2022-08-11 06:11] VITALS: BP 147/90; PULSE 98; RESP 18
--- NOTE | 2022-08-11 06:30 | ED ---
URI HPI - General Chief Complaint: Upper Respiratory Infection Stated Complaint: Covid+, Vomiting Time Seen by Provider: 08/11/22 03:14 Source: family Mode of arrival: ambulatory Limitations: no limitations - History of Present Illness Initial Comments: This patient is a 52-year-old woman who presents to have evaluation for fever, chills, headache, myalgias, nausea vomiting. She states that she started having symptoms couple of days ago but they're much worse today. She states she believes she has Covid infection. Patient has not noted hematemesis or coffee- ground material. No bloody or tarry stools. No dyspnea or hemoptysis. MD Complaint: fever, other -: days(s) Severity: moderate Quality: aching Consistency: constant Improves With: nothing Worsens With: nothing Context: sick contacts Associated Symptoms: fever, chills, myalgias, headache, nasal congestion, cough, vomiting - Related Data Home Medications Medication Instructions Recorded Confirmed Lutein 20 mg PO DAILY 05/01/18 11/08/20 Latanoprost [Xalatan 0.005%] 1 drop BOTH EYES HS 07/02/18 11/08/20 Ascorbic Acid [Vitamin C] 1,000 mg PO DAILY 11/08/20 11/08/20 Multivitamins, Thera [Multivitamin 1 tab PO DAILY 11/08/20 11/08/20 (formulary)] buPROPion SR [Wellbutrin Sr] 100 mg PO DAILY 11/08/20 11/08/20 Previous Rx's Medication Instructions Recorded Sulfamethox-Tmp 800-160Mg [Bactrim 1 each PO Q12HR #10 tab 11/09/20 Ds] Allergies Allergy/AdvReac Type Severity Reaction Status Date / Time nitrofurantoin Allergy Rash/Hives Verified 08/11/22 01:52 [From Macrobid] Review of Systems ROS Statement: Those systems with pertinent positive or pertinent negative responses have been documented in the HPI. ROS Other: All systems not noted in ROS Statement are negative. Constitutional: Reports: fever, chills, weakness Eyes: Denies: vision change Respiratory: Reports: cough. Denies: dyspnea, hemoptysis Cardiovascular: Denies: chest pain, syncope Gastrointestinal: Reports: abdominal pain, nausea, vomiting Genitourinary: Denies: dysuria, hematuria Musculoskeletal: Reports: back pain, myalgia Skin: Denies: rash Neurological: Reports: headache. Denies: weakness, numbness Past Medical History Past Medical History: Eye Disorder, GI Bleed, Hypertension, Syncope Additional Past Medical History / Comment(s): Pt states 03/2017 had bleeding gastric ulcer/vertigo and syncopal episode, migraines, pt states has had HTN in the past, glaucoma bilaterally. History of Any Multi-Drug Resistant Organisms: None Reported Past Surgical History: No Surgical Hx Reported Additional Past Surgical History / Comment(s): egd Past Anesthesia/Blood Transfusion Reactions: No Reported Reaction Additional Past Anesthesia/Blood Transfusion Reaction / Comment(s): never received blood transfusions Past Psychological History: Anxiety, Depression Smoking Status: Never smoker Past Alcohol Use History: Rare Past Drug Use History: None Reported - Past Family History Mother Family Medical History: Diabetes Mellitus Sister(s) Family Medical History: Diabetes Mellitus Father Family Medical History: Cancer Additional Family Medical History / Comment(s): Father is living. He has leukemia. General Exam Limitations: no limitations General appearance: alert, in no apparent distress Head exam: Present: atraumatic, normocephalic Eye exam: Present: normal appearance. Absent: scleral icterus, conjunctival inj ection Neck exam: Present: normal inspection, full ROM Respiratory exam: Present: normal lung sounds bilaterally. Absent: respiratory distress, wheezes, rales, rhonchi, stridor Cardiovascular Exam: Present: regular rate, normal rhythm, normal heart sounds. Absent: systolic murmur, diastolic murmur, rubs, gallop GI/Abdominal exam: Present: soft. Absent: distended, tenderness, guarding, rebound, rigid, mass Extremities exam: Present: normal inspection, normal capillary refill. Absent: pedal edema, calf tenderness Back exam: Present: normal inspection. Absent: CVA tenderness (R), CVA tenderness (L) Neurological exam: Present: alert, oriented X3. Absent: motor sensory deficit Skin exam: Present: warm, dry, intact, normal color. Absent: rash Course Vital Signs 08/11/22 08/11/22 01:50 06:00 Temperature 98.1 F Pulse Rate 109 H 98 Respiratory 20 18 Rate Blood Pressure 166/91 147/90 O2 Sat by Pulse 97 94 L Oximetry Medical Decision Making - Medical Decision Making Patient is 52-year-old woman here with COVID-19 infection. She is feeling better after symptomatic treatment. Patient is stable to continue outpatient course, did discuss appropriate return parameters as well as the follow-up course. - Lab Data Result diagrams: 08/11/22 03:39 08/11/22 03:39 Lab Results 08/11/22 08/11/22 08/11/22 Range/Units 01:56 03:39 03:39 WBC 5.5 (3.8-10.6) k/uL RBC 3.68 L (3.80-5.40) m/uL Hgb 10.9 L (11.4-16.0) gm/dL Hct 33.3 L (34.0-46.0) % MCV 90.4 (80.0-100.0) fL MCH 29.7 (25.0-35.0) pg MCHC 32.8 (31.0-37.0) g/dL RDW 16.0 H (11.5-15.5) % Plt Count 196 (150-450) k/uL MPV 8.1 Neutrophils % 61 % Lymphocytes % 27 % Monocytes % 5 % Eosinophils % 4 % Basophils % 1 % Neutrophils # 3.4 (1.3-7.7) k/uL Lymphocytes # 1.5 (1.0-4.8) k/uL Monocytes # 0.3 (0-1.0) k/uL Eosinophils # 0.2 (0-0.7) k/uL Basophils # 0.0 (0-0.2) k/uL Hypochromasia Slight Anisocytosis Slight Sodium 140 (137-145) mmol/L Potassium 4.1 (3.5-5.1) mmol/L Chloride 106 (98-107) mmol/L Carbon Dioxide 26 (22-30) mmol/L Anion Gap 8 mmol/L BUN 20 H (7-17) mg/dL Creatinine 0.82 (0.52-1.04) mg/dL Est GFR (CKD-EPI)AfAm >90 (>60 ml/min/1.73 sqM) Est GFR (CKD-EPI)NonAf 82 (>60 ml/min/1.73 sqM) Glucose 104 H (74-99) mg/dL Calcium 8.8 (8.4-10.2) mg/dL Total Bilirubin 0.3 (0.2-1.3) mg/dL AST 29 (14-36) U/L ALT 22 (4-34) U/L Alkaline Phosphatase 136 H (38-126) U/L Total Protein 6.8 (6.3-8.2) g/dL Albumin 4.0 (3.5-5.0) g/dL Coronavirus (PCR) Detected A (Not Detectd) Disposition Clinical Impression: COVID-19 Disposition: HOME SELF-CARE Condition: Good Instructions (If sedation given, give patient instructions): COVID-19 (Coronavirus Disease 2019) (ED) Is patient prescribed a controlled substance at d/c from ED?: No Referrals: Atif James DO [Primary Care Provider] - 1-2 days
[2022-08-11] MEDS ORDERED: HYDROcodone/APAP 5-325MG 1 EACH TAB PO STA (06:41)
== END 2022-08-11 06:46 | disposition home or self-care (01) ==
LOC: EC 01:48
DX: U07.1 COVID-19 (principal); I10 Essential (primary) hypertension; F41.9 Anxiety disorder, unspecified; F32.A Depression, unspecified; Z88.1 Allergy status to other antibiotic agents; Z79.899 Other long term (current) drug therapy
CPT/HCPCS: 36415; 80053; 85025; 87635; 99284; 96374; 96375 ×2; 96361; J2765; J2405; J1885

== ENCOUNTER → 2023-12-24 | Outpatient (CLI) | payer OTHER ==
[2023-12-24 10:19] VITALS: BP 121/77; PULSE 75; RESP 16; TEMP 98.3
--- NOTE | 2023-12-24 11:13 | P.HPOB ---
History of Present Illness H&P Date: 12/24/23 Chief Complaint: The patient is here for her routine gynecologic exam and ma mmogram. This is a 53-year-old -0-2-2 with an LMP of August 2023. She is here to establish with this office. It has been more than 5 years since her last pelvic exam. Her menstrual periods were regular every month up until about 1-1/2 years ago when they became less frequent. During the past year she has not had 2 menstrual periods and she has developed hot flashes. She was prescribed clonidine for the hot flashes and Effexor for mood changes associated with the menopause. These have been helpful for her. Review of Systems The patient has lost 40 pounds over the last year. Weight loss has been intentional and this has been done with diet and exercise and has also been on semaglutide injections weekly. she denies respiratory, cardiac, or G.I. proble ms. Past Medical History Past Medical History: Eye Disorder, GI Bleed, Hypertension, Syncope Additional Past Medical History / Comment(s): Pt states 03/2017 had bleeding gastric ulcer/vertigo and syncopal episode, migraines, pt states has had HTN in the past, glaucoma bilaterally. 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 History of Any Multi-Drug Resistant Organisms: None Reported Past Surgical History: No Surgical Hx Reported Additional Past Surgical History / Comment(s): egd Past Anesthesia/Blood Transfusion Reactions: No Reported Reaction Additional Past Anesthesia/Blood Transfusion Reaction / Comment(s): never received blood transfusions Past Psychological History: Anxiety, Depression Additional Psychological History / Comment(s): Pt lives at home with her fiminoe. 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 She states she has been under alot of stress. Smoking Status: Former smoker Past Alcohol Use History: Rare (5 drinks per year.) Additional Past Alcohol Use History / Comment(s): Pt started smoking in 1984 and quit in Dec, 2017 Past Drug Use History: None Reported Additional History: He is and has been with her boyfriend since 2018 and they live together. 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 - Past Family History Mother Family Medical History: COPD, Dementia, Diabetes Mellitus Additional Family Medical History / Comment(s): . Sister(s) Family Medical History: Cancer, CVA/TIA, Diabetes Mellitus Additional Family Medical History / Comment(s): 1 sister of a stroke. Another sister had breast cancer. Father Family Medical History: Cancer, Hypertension Additional Family Medical History / Comment(s): . Leukemia and glaucoma. Medications and Allergies Home Medications and Allergies Comment(s): Semiglutide 100 mg injections weekly. Home Medications Medication Instructions Recorded Confirmed Type Lutein 20 mg PO DAILY 05/01/18 12/24/23 History Latanoprost [Xalatan 0.005%] 1 drop BOTH EYES HS 07/02/18 12/24/23 History Ascorbic Acid [Vitamin C] 1,000 mg PO DAILY 11/08/20 12/24/23 History Multivitamins, Thera [Multivitamin 1 tab PO DAILY 11/08/20 12/24/23 History (formulary)] Venlafaxine HCl ER [Effexor XR] 150 mg PO DAILY 12/24/23 12/24/23 History cloNIDine [Catapres-TTS 0.2 mg/ 1 patch TOPICAL WEEKLY 12/24/23 12/24/23 History hour] Allergies Allergy/AdvReac Type Severity Reaction Status Date / Time nitrofurantoin Allergy Rash/Hives Verified 12/24/23 09:57 [From Macrobid] Exam Vital Signs Temp Pulse Resp BP Pulse Ox 12/24/23 10:00 98.3 F 75 16 121/77 98 Intake and Output 12/23/23 12/24/23 12/24/23 22:59 06:59 14:59 Other: Weight 77.564 kg Height 5 feet 6 inches, weight 171 pounds, BMI 27.6. This is a well-developed well-nourished white female who is alert and oriented times 3 in no acute distress. HEENT: Within normal limits. NECK: Supple without mass or thyromegaly. CHEST AND LUNGS: Clear to auscultation. HEART: Regular rate and rhythm. BREASTS: Are without mass or discharge. AXILLARY EXAM: Negative for adenopathy. BACK: Negative for CVA tenderness. ABDOMEN: Soft, nontender, without palpable masses. PELVIC EXAM: Normal external genitalia with minimal atrophy. Cervix and vagina appear normal with minimal atrophy. There is no unusual discharge. There is no evidence of prolapse. The uterus is slightly retroverted, nongravid size and nontender. There are no palpable adnexal masses or tenderness. RECTAL EXAM: Rectovaginal exam is negative for mass or tenderness and is negative for occult blood. EXTREMITIES: Nontender. IMPRESSION: 1. 53-year-old perimenopausal female with normal gynecologic exam. 2. Oligomenorrhea and vasomotor symptoms consistent with the menopausal change. Hot flashes and emotional changes have been improved with clonidine and Effexor as prescribed by her PCP. PLAN: 1. Pap smear cotest was performed. 2. Self breast awareness was discussed with the patient. We have also discussed symptoms associated with inflammatory breast cancer. 3. Screening mammogram will be done today. 4. Osteoporosis prevention was discussed. I have stressed the importance of adequate calcium, vitamin D and regular exercise. Recommended amounts of calcium and vitamin D were also discussed. 5. She will keep a menstrual calendar and call if menstrual problems. 6. Colorectal cancer screening was discussed and she will further discuss her options with her PCP. 7. She was advised to return in one year for her annual well woman exam.
--- NOTE | 2023-12-24 20:30 | MM ---
Reason for Exam: Screening (asymptomatic). Last mammogram was performed 5 year(s) and 1 month(s) ago. Patient History: Menarche at age 12. First Full-Term at age 26. Patient has history of breast feeding. Sister had breast cancer. Last menstrual period: 09/04/2023 Risk Values: Mindi 5 year model risk: 2.1%. NCI Lifetime model risk: 14.2%. Prior Study Comparison: 12/09/2018 Bilateral Screening Mammogram, [facility]. Tissue Density: There are scattered areas of fibroglandular density. Findings: Analyzed By CAD. There is no suspicious group of microcalcifications or new suspicious mass in either breast. Overall Assessment: Negative, BI-RAD 1 Management: Screening Mammogram of both breasts in 1 year. . Patient should continue monthly self-breast exams. A clinical breast exam by your physician is recommended on an annual basis. This exam should not preclude additional follow-up of suspicious palpable abnormalities. Note on Mindi scores and lifetime risk: 1. A Mindi score greater than 3% is considered moderate risk. If this is the case, consider specialist referral to assess eligibility for a risk reducing agent. 2. If overall lifetime risk for the development of breast cancer is 20% or higher, the patient may qualify for future screening with alternating mammogram and breast MRI. Electronically signed and approved by: Zack Canas M.D. Radiologist
== END ==
LOC: WWCWWP 09:35
PROVIDERS: ATTEND Obstetrics & Gynecology
DX: Z12.31 Encounter for screening mammogram for malignant neoplasm of breast (principal); N91.5 Oligomenorrhea, unspecified; Z88.1 Allergy status to other antibiotic agents; Z87.891 Personal history of nicotine dependence; Z78.0 Asymptomatic menopausal state
CPT/HCPCS: 77063; 77067